=== PATIENT | female | born 1975 | race Caucasian/White ===

== ENCOUNTER 2019-11-12 08:52 | Observation (INO) ==
[2019-11-12 09:17] LABS: Basophils # 0.1 10*3/uL (0.0-0.2); Basophils % 0.8 % (0.0-0.8); Eosinophils # 0.2 10*3/uL (0.0-0.87); Eosinophils % 1.6 % (0.00-10.9); Hematocrit 45.9 VOL% (35.7-47.0); Hemoglobin 15.1 GM/DL (12.0-16.0); Immature Granulocytes % 0.4 %; Immature Granulocytes Absolute 0.04 #; Lymphocytes # 1.8 10*3/uL (1.4-4.0); Lymphocytes % 16.9 % (21.3-54.2); Mean Corpuscular HGB Conc 32.9 GM/DL (32-36); Mean Corpuscular Volume 90.5 FL (87-102); Mean Platelet Volume 10.5 FL (9.6-12.0); Monocytes % 6.3 % (1.7-12.7); Platelet Count 279 T/CUMM (130-400); Red Blood Count 5.07 MC/CUMM (3.8-5.5); Red Cell Distribution Width 14.5 % (9.3-17.3); White Blood Count 10.7 T/CUMM (4-12)
[2019-11-12 09:25] LABS: INR 0.9; PT Patient Result 10.1 SECS (9.6-12.2); Partial Thromboplastin Time 24.3 SECS (20.8-36.0)
[2019-11-12 09:34] LABS: Albumin 3.7 G/DL (3.4-5.0); Bilirubin,Total 0.6 MG/DL (0.2-1.0); Calcium 8.8 MG/DL (8.5-10.1); Osmolality,Calculated 272.7 MOS/KG (273-304); Total Protein 6.9 G/DL (6.4-8.3)
[2019-11-12] MEDS ORDERED: METOPROLOL TARTRATE 25 MG TABLET PO STA (09:47)
[2019-11-12] MEDS ORDERED: FUROSEMIDE 100 MG/10 ML VIAL IV STA (11:09)
[2019-11-12 11:10] LABS: Barbiturates Screen,Urine Negative (Negative); Benzodiazepines Screen,Urine Negative (Negative); Cannabinoid Screen,Urine Negative (Negative); Opiate Screen,Urine Negative (Negative); Phencyclidine Screen,Urine Negative (Negative)
[2019-11-12] MEDS ORDERED: PROMETHAZINE 25 MG/1 ML VIAL IM PRN (13:15)
[2019-11-12] MEDS ORDERED: ACETAMINOPHEN 325 MG TABLET PO PRN (13:15)
[2019-11-12] MEDS ORDERED: ONDANSETRON 4 MG/2 ML VIAL IV PRN (13:15)
[2019-11-12] MEDS ORDERED: ENOXAPARIN 40 MG/0.4 ML SYRINGE SUBCUT SCH (21:00)
[2019-11-12] MEDS: carvediloL 3.125 MG TABLET PO SCH (21:21)
[2019-11-13 06:58] LABS: Risk Ratio 3.32
[2019-11-13 08:35] VITALS: BP 120/70
[2019-11-13] MEDS ORDERED: lisinopriL 5 MG TABLET PO SCH (09:00)
[2019-11-13] MEDS ORDERED: ASPIRIN EC 81 MG TABLET PO SCH (09:00)
[2019-11-13] MEDS ORDERED: PANTOPRAZOLE 40 MG TABLET PO SCH (09:00)
[2019-11-13] MEDS: carvediloL 3.125 MG TABLET PO SCH (09:04)
== END 2019-11-13 10:40 | disposition home or self-care (01) ==
LOC: N.EDINP 08:52 → N.ED 08:52 → N.5E 15:22
PROVIDERS: ADMIT Internal Medicine; ATTEND Internal Medicine